=== PATIENT | female | born 1955 | race Two or more races ===

== ENCOUNTER 2024-01-08 18:03 | Emergency (ER) | payer MEDICARE ==
[~2024-01-08] VITALS: Ht 165.1 cm; Wt 100.0 kg
[~2024-01-08 18:03] MED LIST: APIX5TAB MT; ATOR-2 PO; BENA40TA91 PO; ESCI-7 PO; HYDR50TA39 PO; INSU100I28 SUBCUT; LANTUSUD SUBCUT; METF750T46 PO; METO100T16 PO
[2024-01-08 18:05] VITALS: BP 171/72; O2SAT 96
[2024-01-08 18:07] VITALS: PULSE 59
== END 2024-01-08 21:43 | disposition home or self-care (01) ==
LOC: ER 18:16
DX: S60.211A Contusion of right wrist, initial encounter (principal); E11.9 Type 2 diabetes mellitus without complications; I25.2 Old myocardial infarction; I10 Essential (primary) hypertension; Z88.5 Allergy status to narcotic agent; Z79.899 Other long term (current) drug therapy; Z86.73 Personal history of transient ischemic attack (TIA), and cerebral infarction without residual deficits
CPT/HCPCS: 29125; 99283